=== PATIENT | female | born 1980 | race Two or more races ===

== ENCOUNTER 2021-10-08 13:09 | Emergency (ER) | payer OTHER ==
[~2021-10-08] VITALS: Ht 162.6 cm; Wt 72.6 kg
== END 2021-10-08 18:21 | disposition home or self-care (01) ==
LOC: ER 13:09
DX: O20.9 Hemorrhage in early pregnancy, unspecified (principal); O34.11 Maternal care for benign tumor of corpus uteri, first trimester; Z3A.01 Less than 8 weeks gestation of pregnancy